=== PATIENT | male | born 2000 | race Caucasian/White ===

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

== ENCOUNTER → 2021-03-29 12:36 | Outpatient (CLI) | payer OTHER, SELFPAY ==
[2021-03-29 12:52] LABS: Add Manual Diff / Slide Review NO; Basophils Absolute Auto 100 /uL (0-100); Basophils Percent Auto 0.8 % (0-2); Eosinophils Absolute Auto 200 /uL (0-450); Eosinophils Percent Auto 1.5 % (2-4); Hematocrit 46.9 % (41-53); Hemoglobin 16.3 g/dL (13.5-17.5); Lymphocytes Absolute Auto 2000 /uL (1100-4500); Lymphocytes Percent Auto 16.8 % (25-40); Mean Corpuscular HGB Conc 34.8 % (30-36); Mean Corpuscular Volume 86.2 fL (80-100); Monocytes Absolute Auto 700 /uL (0-900); Monocytes Percent Auto 5.6 % (3-14); Neutrophils Absolute Auto 9100 /uL (1500-7000); Neutrophils Percent Auto 75.3 % (50-75); Platelet Count 252 X10^3/uL (150-400); Red Blood Cell Count 5.44 X10^6/uL (4.5-5.9); Red Cell Distribution Width 12.7 % (11.6-14.8)
[2021-03-29 13:02] LABS: PTT Partial Thromboplastin Tim 34 SECONDS (26.4-36.2)
[2021-03-29 13:07] LABS: Alanine Aminotransferase 25 IU/L (<50); Albumin 4.9 g/dL (3.5-5.0); Albumin Globulin Ratio 1.6 (1.0-2.8); Alkaline Phosphatase 58 U/L (38-126); Aspartate Aminotransferase 37 IU/L (17-59); BUN Creatinine Ratio 23.7 (6-22); Bilirubin Total 0.5 mg/dL (0.2-1.3); Blood Urea Nitrogen 23 mg/dL (9-20); Calcium 9.8 mg/dL (8.4-10.2); Carbon Dioxide 26 mmol/L (22-32); Chloride 103 mmol/L (98-107); Estimated Glomerular Filt Rate > 60.0 mL/min (>60); Glucose 99 mg/dL (70-100); HEMOLYSIS < 15 (0-50); Lipase 92 U/L (23-300); Potassium 4.8 mmol/L (3.4-5.1); Sodium 138 mmol/L (137-145); Total Protein 7.9 g/dL (6.3-8.2)
== END ==
PROVIDERS: PCP Pediatrics; Referring Provider Nurse Practitioner Family; Visit Provider Nurse Practitioner Family
DX: K92.2 Gastrointestinal hemorrhage, unspecified (principal); R10.11 Right upper quadrant pain; R11.2 Nausea with vomiting, unspecified
CPT/HCPCS: 36415; 80053; 83690; 85025; 85730

== ENCOUNTER 2021-03-29 16:18 | Emergency (ER) | payer OTHER, SELFPAY ==
[2021-03-29 16:23] VITALS: BP 130/85; PULSE 106; RESP 18; TEMP 37.1; O2SAT 99; BMI 23.7
--- NOTE | 2021-03-29 18:18 | ED_ITS ---
HPI - GI Bleed General Chief complaint: GI Bleed Stated complaint: abd pain, bloating Time Seen by Provider: 03/29/21 16:30 Source: patient Mode of arrival: Ambulatory Limitations: no limitations History of Present Illness HPI Narrative: Patient is a 20-year-old male who presents with abdominal pain and black stools ongoing for the last 2 days. He says it started about 2 days ago when he ate something funny for lunch is given started having some bloating abdominal pain he had a few episodes of vomiting which have subsided in since then has had numerous black formed stools no. He took a very small dose of Pep to-Bismol. He continues to not feel great has having pain. He has had decrease in appetite Onset (ago): day(s) (2) Pain Consistency: intermittent Severity: moderate Relieving factors: none Exacerbating factors: none Related Data Home Medications Medication Instructions Recorded Confirmed No Known Home Medications 03/29/21 03/29/21 Previous Rx's Medication Instructions Recorded pantoprazole 20 mg tablet,delayed 40 mg PO BID 14 Days #56 tab 03/29/21 release Allergies Allergy/AdvReac Type Severity Reaction Status Date / Time No Known Drug Allergies Allergy Verified 03/29/21 11:34 Review of Systems Review of Systems Narrative: GENERAL: Denies chills, fatigue, malaise, fever, sweats, travel HEENT: Denies sinus pain, ear pain, sore throat, difficulty swallowing, neck pain RESPIRATORY: Denies dyspnea, cough, wheezing, hemoptysis, sputum. CARDIOVASCULAR: Denies chest pain, palpitations, orthopnea, edema GASTROINTESTINAL: See HPI : Denies dysuria, frequency, incontinence, hematuria, urinary retention, flank pain. MUSCULOSKELETAL: Denies weakness, joint pain, or bony pain SKIN: No rash, no erythema, no pruritus NEUROLOGIC: Denies weakness, dizziness, headache, numbness, change in speech, confusion PSYCHIATRIC: No concerning psychosocial issues. 12 point review of systems is negative except for those stated above and HPI Patient History Medical History Cleft palate Injury of left foot Pneumothorax Surgical History History of appendectomy Status post appendectomy Social History Smoking Status: Former smoker Smoking Status: Former smoker alcohol intake frequency: 0-2 drinks per day Substance Use Type: marijuana Exam Initial Vital Signs Initial Vital Signs: Vital Signs Temperature 98.7 F 03/29/21 16:23 Pulse Rate 106 H 03/29/21 16:23 Respiratory Rate 18 03/29/21 16:23 Blood Pressure 130/85 03/29/21 16:23 Pulse Oximetry 99 03/29/21 16:23 GENERAL: Well-appearing 20-year-old mle and in no acute distress. HEENT: Head atraumatic,EOMI, pupils reactive, face symmetric, moist mucous membranes CARDIOVASCULAR: Regular rate and rhythm without murmurs, rubs or gallops. RESPIRATORY: Breath sounds equal bilaterally, no wheezes rales or rhonchi. ABDOMEN: Soft, mild diffuse abdominal pain RECTAL: Hemoccult negative, no hemorrhoids, nontender EXTREMITIES: Normal range of motion, no clubbing or edema. Neurovascularly intact NEUROLOGICAL: Alert and oriented x4.Normal gait and speech. SKIN: Warm, dry, no laceration, no petechiae, no rashes or lesions. Course Orders Ordered: ED Orders 03/29/21 18:35 Hemoglobin and Hematocrit Stat Vital Signs Vital signs: Vital Signs - 8 hr 03/29/21 16:23 03/29/21 19:20 Temperature 98.7 F Pulse Rate 106 H 44 L Respiratory Rate 18 Blood Pressure 130/85 130/74 Pulse Oximetry 99 98 MDM - GI Bleed Lab Data Attestation: I reviewed the patient's lab results. Result diagrams: 03/29/21 18:35 Labs: Lab Results 03/29/21 Range/Units 18:35 Hgb 15.8 (13.5-17.5) g/dL Hct 45.4 (41-53) % Urine Dip Bedside Urine Glucose Negative Bedside Urine Bilirubin - Negative Bedside Urine Ketone - Negative Urine Specific [place] 1.015 Bedside Urine Occult Blood - Negative Bedside Urine pH 6.0 Bedside Urine Protein - Negative Bedside Urine Urobilinogen - Negative Bedside Urine Nitrite - Negative Bedside Urine Leukocytes - Negative Esterase MDM Narrative Medical decision making narrative: Patient had blood work done earlier today from the walk-in clinic with was normal. Repeat H&H again normal. Hemoccult negative at this time no sign of active GI bleeding. Vitals are stable. Black stool likely from Pepto-Bismol. Symptoms of nausea vomiting and diarrhea are more consistent with gastroenteritis. He has no significant abdominal pain at this time I see no need for any abdominal imaging. Patient is given strict return precautions. Discharge Plan Departure Patient Disposition: Home Clinical Impression: Gastroenteritis Instructions: DI for Viral Gastroenteritis -- Adult Activity Restrictions/Additional Instructions: *You have been diagnosed with gastroenteritis *What to do: At this time there is no evidence of bleeding her blood work is stable today and actually above normal limits. Pepto-Bismol can make your stool black. Continue to increase fluid intake. *Continue to take medications as directed Tylenol 1000 mg every 6 hours if needed for [id number] pain *Follow up with your primary care provider in 2-3 days *Return to ER if you should have increasing pain, persistent vomiting, dizziness, lightheadedness, passing out, bright red bloody stool or persistently black stool or any new, worsening or concerning symptoms Prescriptions: No Action No Known Home Medications RF: 0 pantoprazole [Protonix] 20 mg tablet,delayed release (DR/EC) 40 mg PO BID 14 Days Qty: 56 RF: 0 Referrals: Teodoro Weber MD [Primary Care Provider] -
[2021-03-29 18:44] LABS: Hematocrit 45.4 % (41-53); Hemoglobin 15.8 g/dL (13.5-17.5)
[2021-03-29 19:20] VITALS: BP 130/74; PULSE 44; O2SAT 98
== END 2021-03-29 19:21 | disposition home or self-care (01) ==
PROVIDERS: Emergency Provider Emergency Medicine; PCP Pediatrics
DX: K52.9 Noninfective gastroenteritis and colitis, unspecified (principal); K92.2 Gastrointestinal hemorrhage, unspecified; R10.11 Right upper quadrant pain; R11.2 Nausea with vomiting, unspecified
CPT/HCPCS: 36415; 80053; 81003; 83690; 85014; 85018; 85025; 85730; 99283; 99284